=== PATIENT | female | born 1975 | race Caucasian/White ===

== ENCOUNTER 2018-09-04 17:02 | Inpatient (IN) | payer MEDICARE, MEDICAID ==
[~2018-09-04] VITALS: Ht 165.1 cm; Wt 93.0 kg
[2018-09-04 17:36] LABS: CLARITY,URINE CLOUDY (Clear); COLOR,URINE YELLOW (Yellow); GLUCOSE, URINE NEGATIVE (Neg); KETONES,URINE NEGATIVE (Neg); LEUKOCYTE ESTERASE ,URINE TRACE (Neg); NITRITES, URINE NEGATIVE (Neg); OCCULT BLOOD,URINE LARGE (Neg); PROTEIN,URINE TRACE mg/dl (Neg); URINE HCG NEGATIVE (NEG); UROBILINOGEN,URINE 0.2 E.U/dL (0.2-1.0)
[2018-09-04 17:40] LABS: UA COLLECTION TYPE CLN CATCH MIDSTREAM
[2018-09-04 17:42] LABS: SQUAMOUS EPITHELIAL CELL,UR MODERATE /LPF (FEW)
[2018-09-04 17:43] LABS: BACTERIA,URINE FEW /HPF (Neg); MUCUS STRANDS NONE SEEN /LPF (Neg); RBC,URINE TNTC /HPF (0-2); WBC,URINE 0-4 /HPF (0-4)
[2018-09-04 17:51] LABS: BASOPHILS % (AUTO) 0 % (0-1); EOSINOPHILS # (AUTO) 0.3 X10'3 (0-0.9); EOSINOPHILS % (AUTO) 2.3 % (0-6); HEMATOCRIT 46.5 % (35.0-45.0); HEMOGLOBIN 15.5 g/dl (12.0-16.0); LYMPHOCYTES # (AUTO) 2.2 X10'3 (1.1-4.8); LYMPHOCYTES % (AUTO) 16.1 % (21-51); MEAN CORPUSCULAR HEMOGLOBIN 30.4 PG (27.0-31.0); MEAN CORPUSCULAR HGB CONC 33.4 % (33.0-36.5); MEAN CORPUSCULAR VOLUME 90.9 FL (78-98); MEAN PLATELET VOLUME 8.3 FL (7.4-10.4); MONOCYTES # (AUTO) 0.7 X10'3 (0-0.9); MONOCYTES % (AUTO) 5.3 % (2-12); NEUTROPHILS # (AUTO) 10.6 X10'3 (1.8-7.7); NEUTROPHILS % (AUTO) 76.3 % (42-75); PLATELET COUNT 305 X10'3 (140-440); RED BLOOD COUNT 5.11 X10'6 (4.20-5.60); RED CELL DISTRIBUTION WIDTH 13.6 % (11.5-14.5); WHITE BLOOD COUNT 13.9 X10'3 (4.5-11.0)
[2018-09-04 18:13] LABS: ANION GAP 9 (8-16); BLOOD UREA NITROGEN 11 MG/DL (7-18); CHLORIDE 105 MMOL/L (99-107); CREATININE 0.98 MG/DL (0.40-0.90); GLUCOSE 110 MG/DL (70-104); POTASSIUM 3.9 MMOL/L (3.5-5.1); SODIUM 142 MMOL/L (135-145); TOTAL CARBON DIOXIDE 27.7 MMOL/L (24-32)
[2018-09-04 18:14] LABS: ALANINE AMINOTRANSFERASE 42 U/L (12-78); ALBUMIN 3.7 G/DL (3.4-5.0); ALKALINE PHOSPHATASE 71 IU/L (46-116); ASPARTATE AMINO TRANSFERASE 27 U/L (10-37); BILIRUBIN,TOTAL 0.3 MG/DL (0.1-1.0); BUN/CREATININE RATIO 11.2 (6.6-38.0); CALCIUM 8.3 MG/DL (8.5-10.1); TOTAL PROTEIN 7.3 G/DL (6.4-8.2); eGFR 62 ML/MIN
[2018-09-04] MEDS ORDERED: metoclopramide 5 mg/ml inj IV ONE (18:15)
[2018-09-04] MEDS ORDERED: normal saline 1000ML IV soln IVB ONE ×2 (18:15)
[2018-09-04] MEDS ORDERED: LORazepam 2 mg/ml vial IV ONE (18:15)
[2018-09-04] MEDS ORDERED: diphenhydrAMINE 50 mg/ml inj IV ONE (18:15)
[2018-09-04] MEDS ORDERED: HYDROmorphone inj. 0.5 MG/0.5 ML DISP.SYRIN IV PRN (18:15)
[2018-09-04 18:16] LABS: PROTHROMBIN TIME 10.4 SECONDS (9.0-12.0)
[2018-09-04 18:45] LABS: AMYLASE 1644 U/L (25-115)
[2018-09-04 19:00] LABS: LIPASE > 30000 U/L (73-393)
[2018-09-04] MEDS ORDERED: naloxone 0.4 mg/ml inj IV PRN (21:45)
[2018-09-04] MEDS ORDERED: CefTRIAXone/D5W-Rocephin 1gm 50 ML IV ONE (21:45)
[2018-09-04] MEDS ORDERED: CADD PCA waste documentation MC PRN (21:45)
[2018-09-04 21:49] LABS: TRIGLYCERIDES 148 MG/DL (20-135)
[2018-09-04] MEDS: normal saline 1000ml 1,000 ML IV SCH (22:04)
--- NOTE | 2018-09-04 23:20 | NUR ---
Received pt report from Jen in ER. Pt arrived on unit at 2320 with IV in rt hand running NS @ 100. Pt on room air. Was able to walk from gurney to bed with standby assist. VSS, pt made comfortable with no signs of distress. Will continue to monitor.
[2018-09-04 23:30] VITALS: BP 98/53
[2018-09-05] MEDS: HYDROmorphone/NS 1 mg/ml CADD 50 ML IV SCH ×13 (00:58→23:00)
[2018-09-05 05:38] LABS: BASOPHILS % (AUTO) 0.2 % (0-1); EOSINOPHILS # (AUTO) 0.3 X10'3 (0-0.9); EOSINOPHILS % (AUTO) 2.3 % (0-6); HEMATOCRIT 41.5 % (35.0-45.0); HEMOGLOBIN 14.1 g/dl (12.0-16.0); LYMPHOCYTES # (AUTO) 1.3 X10'3 (1.1-4.8); LYMPHOCYTES % (AUTO) 10.3 % (21-51); MEAN CORPUSCULAR HEMOGLOBIN 30.7 PG (27.0-31.0); MEAN CORPUSCULAR HGB CONC 33.9 % (33.0-36.5); MEAN CORPUSCULAR VOLUME 90.5 FL (78-98); MEAN PLATELET VOLUME 8.6 FL (7.4-10.4); MONOCYTES # (AUTO) 0.7 X10'3 (0-0.9); MONOCYTES % (AUTO) 5.7 % (2-12); NEUTROPHILS # (AUTO) 10.2 X10'3 (1.8-7.7); NEUTROPHILS % (AUTO) 81.5 % (42-75); PLATELET COUNT 277 X10'3 (140-440); RED BLOOD COUNT 4.58 X10'6 (4.20-5.60); RED CELL DISTRIBUTION WIDTH 13.6 % (11.5-14.5); WHITE BLOOD COUNT 12.5 X10'3 (4.5-11.0)
[2018-09-05 05:41] LABS: ALANINE AMINOTRANSFERASE 36 U/L (12-78); ALBUMIN 2.9 G/DL (3.4-5.0); ALBUMIN/GLOBULIN RATIO 0.9 (1.1-1.5); ALKALINE PHOSPHATASE 66 IU/L (46-116); ANION GAP 12 (8-16); ASPARTATE AMINO TRANSFERASE 26 U/L (10-37); BILIRUBIN,TOTAL 0.4 MG/DL (0.1-1.0); BLOOD UREA NITROGEN 9 MG/DL (7-18); BUN/CREATININE RATIO 11.3 (6.6-38.0); CALCIUM 7.5 MG/DL (8.5-10.1); CHLORIDE 107 MMOL/L (99-107); GLUCOSE 104 MG/DL (70-104); POTASSIUM 3.9 MMOL/L (3.5-5.1); SODIUM 141 MMOL/L (135-145); TOTAL CARBON DIOXIDE 21.6 MMOL/L (24-32); TOTAL PROTEIN 6.1 G/DL (6.4-8.2); eGFR 79 ML/MIN
--- NOTE | 2018-09-05 06:38 | NUR ---
Problems reprioritized. Patient report given, questions answered & plan of care reviewed with Rupa HARRIS. Pt was awake in bed resting with no signs of distress.
[2018-09-05 07:47] VITALS: BP 105/60
[2018-09-05] MEDS: normal saline 1000ml 1,000 ML IV SCH ×2 (08:09→17:35)
[2018-09-05] MEDS: famotidine/PF 10 mg/ml inj IV SCH (08:10)
[2018-09-05] MEDS: heparin, porcine 5000 units/ml vial SQ SCH ×2 (08:10→19:33)
[2018-09-05 12:00] VITALS: BP 108/63
--- NOTE | 2018-09-05 18:16 | NUR ---
Patient in room [facility]. I have received report from Rupa HARRIS and had the opportunity to ask questions and assume patient care. Pt resting comfortably in bed working on her clear diet tray. Will continue to monitor.
[2018-09-05 20:00] VITALS: BP 116/70
[2018-09-05] MEDS: ondansetron/PF 4mg/2ml inj IV PRN (23:26)
[2018-09-05 23:49] VITALS: BP 110/68
[2018-09-06] MEDS: HYDROmorphone/NS 1 mg/ml CADD 50 ML IV SCH ×12 (01:00→23:00)
[2018-09-06] MEDS: normal saline 1000ml 1,000 ML IV SCH ×3 (03:00→23:49)
[2018-09-06 05:16] LABS: BASOPHILS # (AUTO) 0.1 X10'3 (0-0.2); BASOPHILS % (AUTO) 0.7 % (0-1); EOSINOPHILS # (AUTO) 0.3 X10'3 (0-0.9); EOSINOPHILS % (AUTO) 2.9 % (0-6); HEMOGLOBIN 14.4 g/dl (12.0-16.0); LYMPHOCYTES # (AUTO) 1.7 X10'3 (1.1-4.8); LYMPHOCYTES % (AUTO) 15.1 % (21-51); MEAN CORPUSCULAR HEMOGLOBIN 31.4 PG (27.0-31.0); MEAN CORPUSCULAR HGB CONC 34.3 % (33.0-36.5); MEAN CORPUSCULAR VOLUME 91.4 FL (78-98); MEAN PLATELET VOLUME 8.6 FL (7.4-10.4); MONOCYTES # (AUTO) 0.9 X10'3 (0-0.9); NEUTROPHILS % (AUTO) 73.3 % (42-75); PLATELET COUNT 253 X10'3 (140-440); RED CELL DISTRIBUTION WIDTH 12.7 % (11.5-14.5)
[2018-09-06 05:29] LABS: ALANINE AMINOTRANSFERASE 36 U/L (12-78); ALBUMIN 2.9 G/DL (3.4-5.0); ALBUMIN/GLOBULIN RATIO 0.9 (1.1-1.5); ALKALINE PHOSPHATASE 66 IU/L (46-116); ANION GAP 11 (8-16); ASPARTATE AMINO TRANSFERASE 24 U/L (10-37); BILIRUBIN,TOTAL 0.9 MG/DL (0.1-1.0); BLOOD UREA NITROGEN 8 MG/DL (7-18); BUN/CREATININE RATIO 10.7 (6.6-38.0); CALCIUM 7.8 MG/DL (8.5-10.1); CHLORIDE 105 MMOL/L (99-107); CREATININE 0.75 MG/DL (0.40-0.90); GLUCOSE 87 MG/DL (70-104); POTASSIUM 3.7 MMOL/L (3.5-5.1); SODIUM 138 MMOL/L (135-145); TOTAL CARBON DIOXIDE 21.6 MMOL/L (24-32); TOTAL PROTEIN 6.3 G/DL (6.4-8.2); eGFR 85 ML/MIN
[2018-09-06 06:00] VITALS: BP 116/62
--- NOTE | 2018-09-06 06:30 | NUR ---
Problems reprioritized. Patient report given, questions answered & plan of care reviewed with STEVEN Butler.
--- NOTE | 2018-09-06 06:41 | NUR ---
Problems reprioritized. Patient report given, questions answered & plan of care reviewed with Meredith HARRIS. Pt is currently sleeping on her right side with no signs of distress.
[2018-09-06 08:00] VITALS: BP 116/62
[2018-09-06 08:01] LABS: LIPASE 558 U/L (73-393)
[2018-09-06] MEDS: famotidine/PF 10 mg/ml inj IV SCH (08:02)
[2018-09-06] MEDS: heparin, porcine 5000 units/ml vial SQ SCH ×2 (08:03→19:47)
[2018-09-06] MEDS: ondansetron/PF 4mg/2ml inj IV PRN ×2 (08:38→14:58)
--- NOTE | 2018-09-06 09:57 | NUR ---
Patient in room [facility]. I have received report from Meredith HARRIS and had the opportunity to ask questions and assume patient care.
[2018-09-06 11:56] VITALS: BP 117/68
--- NOTE | 2018-09-06 15:22 | NUR ---
medicated with zofran for nausea
--- NOTE | 2018-09-06 18:14 | NUR ---
Received report from STEVEN Suh. Patient is awake and alert on room air, in no apparent distress. Visitors at bedside. Call light and items of frequent use within reach. Will continue to monitor.
--- NOTE | 2018-09-06 18:29 | NUR ---
Problems reprioritized. Patient report given, questions answered & plan of care reviewed with winston HARRIS.
[2018-09-06 20:00] VITALS: BP 124/74
[2018-09-06 23:30] VITALS: BP 121/62
[2018-09-07] MEDS: HYDROmorphone/NS 1 mg/ml CADD 50 ML IV SCH ×5 (01:00→09:00)
[2018-09-07 05:42] LABS: ALANINE AMINOTRANSFERASE 34 U/L (12-78); ALBUMIN 2.8 G/DL (3.4-5.0); ALBUMIN/GLOBULIN RATIO 0.8 (1.1-1.5); ALKALINE PHOSPHATASE 65 IU/L (46-116); ANION GAP 11 (8-16); ASPARTATE AMINO TRANSFERASE 19 U/L (10-37); BILIRUBIN,TOTAL 0.7 MG/DL (0.1-1.0); BLOOD UREA NITROGEN 6 MG/DL (7-18); CALCIUM 7.8 MG/DL (8.5-10.1); CHLORIDE 105 MMOL/L (99-107); CREATININE 0.75 MG/DL (0.40-0.90); GLUCOSE 94 MG/DL (70-104); POTASSIUM 3.6 MMOL/L (3.5-5.1); SODIUM 139 MMOL/L (135-145); TOTAL PROTEIN 6.5 G/DL (6.4-8.2); eGFR 85 ML/MIN
[2018-09-07 05:47] LABS: BASOPHILS # (AUTO) 0.1 X10'3 (0-0.2); BASOPHILS % (AUTO) 0.9 % (0-1); EOSINOPHILS # (AUTO) 0.3 X10'3 (0-0.9); EOSINOPHILS % (AUTO) 2.6 % (0-6); HEMATOCRIT 39.4 % (35.0-45.0); HEMOGLOBIN 13.7 g/dl (12.0-16.0); LYMPHOCYTES # (AUTO) 1.4 X10'3 (1.1-4.8); LYMPHOCYTES % (AUTO) 12.1 % (21-51); MEAN CORPUSCULAR HEMOGLOBIN 31.5 PG (27.0-31.0); MEAN CORPUSCULAR HGB CONC 34.6 % (33.0-36.5); MONOCYTES % (AUTO) 8.5 % (2-12); NEUTROPHILS # (AUTO) 8.6 X10'3 (1.8-7.7); NEUTROPHILS % (AUTO) 75.9 % (42-75); PLATELET COUNT 245 X10'3 (140-440); RED BLOOD COUNT 4.33 X10'6 (4.20-5.60); RED CELL DISTRIBUTION WIDTH 12.6 % (11.5-14.5); WHITE BLOOD COUNT 11.4 X10'3 (4.5-11.0)
--- NOTE | 2018-09-07 06:32 | NUR ---
Patient in room [facility]. I have received report from STEVEN Steele and had the opportunity to ask questions and assume patient care.
--- NOTE | 2018-09-07 06:32 | NUR ---
Problems reprioritized. Patient report given, questions answered & plan of care reviewed with STEVEN Vanessa.
[2018-09-07 08:00] VITALS: BP 115/57
[2018-09-07] MEDS: normal saline 1000ml 1,000 ML IV SCH ×2 (08:33→18:38)
[2018-09-07] MEDS: heparin, porcine 5000 units/ml vial SQ SCH ×2 (08:35→19:04)
[2018-09-07] MEDS: famotidine/PF 10 mg/ml inj IV SCH (08:35)
[2018-09-07] MEDS: ondansetron/PF 4mg/2ml inj IV PRN (09:21)
[2018-09-07] MEDS ORDERED: morphine 2 MG/ML inj. syringe IV PRN (10:25)
[2018-09-07 12:00] VITALS: BP 99/69
[2018-09-07 18:00] VITALS: BP 122/66
--- NOTE | 2018-09-07 18:28 | NUR ---
Problems reprioritized. Patient report given, questions answered & plan of care reviewed with STEVEN Carbajal.
--- NOTE | 2018-09-07 18:29 | NUR ---
Patient in room [facility]. I have received report from Javier Renee and had the opportunity to ask questions and assume patient care.
[2018-09-07] MEDS: HYDROcodone/acetaminophen 5mg/325mg tablet PO PRN (19:05)
[2018-09-08] VITALS: BP 129/78
[2018-09-08] MEDS: HYDROcodone/acetaminophen 5mg/325mg tablet PO PRN (01:02)
[2018-09-08] MEDS: normal saline 1000ml 1,000 ML IV SCH (03:12)
[2018-09-08 06:08] LABS: BASOPHILS # (AUTO) 0.1 X10'3 (0-0.2); BASOPHILS % (AUTO) 1.1 % (0-1); EOSINOPHILS # (AUTO) 0.3 X10'3 (0-0.9); EOSINOPHILS % (AUTO) 3.3 % (0-6); HEMATOCRIT 37.9 % (35.0-45.0); HEMOGLOBIN 13.1 g/dl (12.0-16.0); LYMPHOCYTES # (AUTO) 1.5 X10'3 (1.1-4.8); LYMPHOCYTES % (AUTO) 16.3 % (21-51); MEAN CORPUSCULAR HEMOGLOBIN 31.4 PG (27.0-31.0); MEAN CORPUSCULAR HGB CONC 34.5 % (33.0-36.5); MEAN CORPUSCULAR VOLUME 90.7 FL (78-98); MEAN PLATELET VOLUME 9.2 FL (7.4-10.4); MONOCYTES # (AUTO) 0.7 X10'3 (0-0.9); MONOCYTES % (AUTO) 8.2 % (2-12); NEUTROPHILS # (AUTO) 6.4 X10'3 (1.8-7.7); NEUTROPHILS % (AUTO) 71.1 % (42-75); PLATELET COUNT 243 X10'3 (140-440); RED BLOOD COUNT 4.18 X10'6 (4.20-5.60); RED CELL DISTRIBUTION WIDTH 12.7 % (11.5-14.5)
--- NOTE | 2018-09-08 06:32 | NUR ---
Problems reprioritized. Patient report given, questions answered & plan of care reviewed with STEVEN Fletcher.
[2018-09-08 06:33] LABS: ALANINE AMINOTRANSFERASE 32 U/L (12-78); ALBUMIN 2.6 G/DL (3.4-5.0); ALBUMIN/GLOBULIN RATIO 0.7 (1.1-1.5); ALKALINE PHOSPHATASE 65 IU/L (46-116); ANION GAP 10 (8-16); ASPARTATE AMINO TRANSFERASE 20 U/L (10-37); BILIRUBIN,TOTAL 0.4 MG/DL (0.1-1.0); BLOOD UREA NITROGEN 5 MG/DL (7-18); BUN/CREATININE RATIO 6.9 (6.6-38.0); CALCIUM 8.1 MG/DL (8.5-10.1); CHLORIDE 106 MMOL/L (99-107); CREATININE 0.72 MG/DL (0.40-0.90); GLUCOSE 93 MG/DL (70-104); POTASSIUM 3.7 MMOL/L (3.5-5.1); SODIUM 140 MMOL/L (135-145); TOTAL CARBON DIOXIDE 24.1 MMOL/L (24-32); TOTAL PROTEIN 6.3 G/DL (6.4-8.2); eGFR 89 ML/MIN
[2018-09-08 07:00] VITALS: BP 119/77
[2018-09-08] MEDS: heparin, porcine 5000 units/ml vial SQ SCH (07:23)
[2018-09-08] MEDS ORDERED: famotidine 20mg tablet PO ONE (08:00)
[2018-09-08] MEDS ORDERED: HYDR-4383 PO (09:24)
--- NOTE | 2018-09-08 11:06 | NUR ---
PT DISCHARGED IN STABLE CONDITION. LEFT FACILITY IN PRIVATE VEHICLE WITH . IV DC [facility] INTACT. ALL BELONGINGS IN HAND INCLUDING RX OF NORCO DELIVERED BY [facility]. FOLLOW UP INSTRUCTIONS GIVEN, ALL QUESTIONS ANSWERED. Addendum: 09/08/18 at 1108 by Mireya Montiel RN Amended: Links added.
== END 2018-09-08 11:05 | disposition home or self-care (01) | DRG 440 ==
LOC: ER 17:03 → ED HOLD 21:41 → SUR 3N 23:20
PROVIDERS: ADMIT Internal Medicine; ATTEND Internal Medicine
DX: K85.90 Acute pancreatitis without necrosis or infection, unspecified (principal); Z90.49 Acquired absence of other specified parts of digestive tract; Z88.2 Allergy status to sulfonamides; Z88.1 Allergy status to other antibiotic agents; Z79.899 Other long term (current) drug therapy
CPT/HCPCS: 36415; 74176; 76700; 80053; 81001; 81025; 82150; 83690; 84145; 84478; 85025; 85610; 87070; 87088; 96361; 96374; 96375; 99285; G0378; J0696; J1170; J1200; J1644; J2060; J2405; J2765; J3490; J7030

== ENCOUNTER 2021-02-09 02:07 | Emergency (ER) | payer MEDICARE, MEDICAID ==
[~2021-02-09] VITALS: Ht 165.1 cm; Wt 85.0 kg
[~2021-02-09 02:07] MED LIST: HYDR-4383 PO
[2021-02-09 03:36] LABS: BASOPHILS % (AUTO) 0.3 % (0-1); EOSINOPHILS # (AUTO) 0.1 X10'3 (0-0.9); EOSINOPHILS % (AUTO) 1.8 % (0-6); HEMATOCRIT 40.5 % (35.0-45.0); HEMOGLOBIN 14.2 g/dl (12.0-16.0); LYMPHOCYTES # (AUTO) 1.3 X10'3 (1.1-4.8); LYMPHOCYTES % (AUTO) 16.1 % (21-51); MEAN CORPUSCULAR HEMOGLOBIN 31.9 PG (27.0-31.0); MEAN CORPUSCULAR HGB CONC 35.2 g/dL (33.0-36.5); MEAN CORPUSCULAR VOLUME 90.8 FL (78-98); MEAN PLATELET VOLUME 8.1 FL (7.4-10.4); MONOCYTES # (AUTO) 0.6 X10'3 (0-0.9); MONOCYTES % (AUTO) 7.1 % (2-12); NEUTROPHILS # (AUTO) 6.1 X10'3 (1.8-7.7); NEUTROPHILS % (AUTO) 74.7 % (42-75); PLATELET COUNT 242 X10'3 (140-440); RED BLOOD COUNT 4.46 X10'6 (4.20-5.60); RED CELL DISTRIBUTION WIDTH 13.5 % (11.5-14.5); WHITE BLOOD COUNT 8.1 X10'3 (4.5-11.0)
[2021-02-09] MEDS ORDERED: fentaNYL/PF 50MCG/1 ML 2ML syringe IV ONE ×2 (03:45→05:45)
[2021-02-09] MEDS ORDERED: normal saline 1000ML IV soln IVB ONE (03:45)
[2021-02-09] MEDS ORDERED: ondansetron/PF 4mg/2ml inj IV ONE (03:45)
[2021-02-09 03:51] LABS: ALANINE AMINOTRANSFERASE 43 U/L (12-78); ALBUMIN 3.2 G/DL (3.4-5.0); ALKALINE PHOSPHATASE 77 IU/L (46-116); ANION GAP 7 (8-16); ASPARTATE AMINO TRANSFERASE 31 U/L (10-37); BILIRUBIN,TOTAL 0.3 MG/DL (0.1-1.0); BLOOD UREA NITROGEN 14 MG/DL (7-18); BUN/CREATININE RATIO 14.3 (6.6-38.0); CALCIUM 8.3 MG/DL (8.5-10.1); CHLORIDE 106 MMOL/L (99-107); CREATININE 0.98 MG/DL (0.40-0.90); GLUCOSE 123 MG/DL (70-104); LIPASE 110 U/L (73-393); POTASSIUM 3.8 MMOL/L (3.5-5.1); SODIUM 139 MMOL/L (135-145); TOTAL CARBON DIOXIDE 26.1 MMOL/L (24-32); TOTAL PROTEIN 6.5 G/DL (6.4-8.2); eGFR 62 ML/MIN
[2021-02-09 04:02] LABS: CLARITY,URINE SLIGHTLY CLOUDY (Clear); COLOR,URINE YELLOW (Yellow); GLUCOSE, URINE NEGATIVE (Neg); KETONES,URINE TRACE mg/dl (Neg); LEUKOCYTE ESTERASE ,URINE NEGATIVE (Neg); NITRITES, URINE NEGATIVE (Neg); OCCULT BLOOD,URINE LARGE (Neg); PROTEIN,URINE NEGATIVE (Neg); URINE HCG NEGATIVE (NEG); UROBILINOGEN,URINE 0.2 E.U/dL (0.2-1.0)
[2021-02-09 04:15] LABS: UA COLLECTION TYPE CLN CATCH MIDSTREAM; WBC,URINE 0-4 /HPF (0-4)
[2021-02-09 04:16] LABS: BACTERIA,URINE 1+ /HPF (Neg); MUCUS STRANDS MODERATE /LPF (Neg); SQUAMOUS EPITHELIAL CELL,UR MANY /LPF (FEW)
--- NOTE | 2021-02-09 04:41 | NUR ---
Patient provided with ice chips, apple juice and saltine crackers.
[2021-02-09] MEDS ORDERED: sucralfate 1gm/10ml UD suspension PO STA (04:52)
[2021-02-09] MEDS ORDERED: LIDOcaine Viscous 15ml cup MM ONE (04:55)
[2021-02-09] MEDS ORDERED: ketorolac trometh. 30mg/ml inj. IV ONE (04:55)
[2021-02-09] MEDS ORDERED: mag hydrox/Alum hydrox/simeth 30ml oral suspension PO ONE (04:55)
[2021-02-09] MEDS ORDERED: ONDA4TAB6 PO (06:23)
[2021-02-09] MEDS ORDERED: HYDR-3972 PO (06:23)
[2021-02-09 06:34] VITALS: BP 101/72
== END 2021-02-09 06:35 | disposition home or self-care (01) ==
LOC: ER 02:07
DX: R10.10 Upper abdominal pain, unspecified (principal); R11.2 Nausea with vomiting, unspecified; R10.13 Epigastric pain; Z88.1 Allergy status to other antibiotic agents; Z88.2 Allergy status to sulfonamides; Z88.8 Allergy status to other drugs, medicaments and biological substances; Z79.899 Other long term (current) drug therapy; Z90.49 Acquired absence of other specified parts of digestive tract
CPT/HCPCS: 36415; 80053; 81001; 81025; 83690; 85025; 96361; 96374; 96375; 96376; 99285; J1885; J2405; J3010; J7030